=== PATIENT | female | born 1990 ===

== ENCOUNTER → 2019-02-06 | Day surgery (SDC) | payer OTHER | END | disposition home or self-care (01) | LOC: ADM 01-31 07:30 → AMB-ENDOS 07:30 | DX: D13.1 Benign neoplasm of stomach (principal) ==

== ENCOUNTER 2021-10-04 20:49 | Emergency (ER) | payer OTHER ==
[~2021-10-04] VITALS: Ht 167.6 cm; Wt 73.5 kg
[2021-10-04] MEDS ORDERED: AMBIEN10 MG (22:47)
[2021-10-05] MEDS ORDERED: KETO10TA2 PO (06:20)
== END 2021-10-05 06:38 | disposition home or self-care (01) ==
LOC: ER 20:49
DX: M54.59 Other low back pain (principal); Z20.822 Contact with and (suspected) exposure to COVID-19